=== PATIENT | male | born 1960 | race Caucasian/White ===

== ENCOUNTER 2017-03-10 09:15 | Inpatient (IN) | payer OTHER ==
[~2017-03-10] VITALS: Ht 175.3 cm; Wt 97.5 kg
[2017-03-10] MEDS ORDERED: GABAPENTIN400 MG PO (13:04)
[2017-03-10] MEDS ORDERED: LISINOPRIL2.5 MG PO (13:05)
[2017-03-10] MEDS ORDERED: ULTRAN PO (13:05)
[2017-03-10] MEDS ORDERED: LIPITOR20 MG PO (13:05)
[2017-03-10] MEDS ORDERED: CLONAZEPAM0.5 MG PO (13:06)
[2017-03-10] MEDS ORDERED: PRILOSEC10 MG PO (13:06)
[2017-03-10] MEDS ORDERED: EFFEXOR XR75 MG PO (13:07)
[2017-03-10] MEDS ORDERED: RELAFEN PO (13:07)
[2017-03-10] MEDS ORDERED: FLEXERIL PO (13:08)
[2017-03-18] MEDS ORDERED: CLONAZEPAM1 MG PO (11:53)
[2017-03-18] MEDS ORDERED: DOCUSATE SODIU100 MG PO (11:53)
[2017-03-18] MEDS ORDERED: PERCOCET 5-3251 EACH PO (11:53)
== END 2017-03-18 14:23 | disposition home or self-care (01) | DRG 455 ==
LOC: O/R 03-17 04:30 → PED 03-17 04:30 → SURH 03-17 07:15 → PED 03-17 10:30
PROVIDERS: Orthopaedic Surgery Orthopaedic Surgery of the Spine
PROC: 0RG20A0 Fusion of 2 or more Cervical Vertebral Joints with Interbody Fusion Device, Anterior Approach, Anterior Column, Open Approach (ICD-10-PCS; 2017-03-17)
PROC: 0RG20K1 Fusion of 2 or more Cervical Vertebral Joints with Nonautologous Tissue Substitute, Posterior Approach, Posterior Column, Open Approach (ICD-10-PCS; 2017-03-17)
PROC: 0RT30ZZ Resection of Cervical Vertebral Disc, Open Approach (ICD-10-PCS; principal; 2017-03-17 07:15)
DX: M50.121 Cervical disc disorder at C4-C5 level with radiculopathy (principal); M47.22 Other spondylosis with radiculopathy, cervical region; I10 Essential (primary) hypertension

== ENCOUNTER 2023-08-20 05:00 | Day surgery (SDC) | payer OTHER ==
[2023-08-13 10:31] LABS: HEMATOCRIT 44.6 % (39.0-48.0); HEMOGLOBIN 15.6 g/dL (13-16.00); MEAN CORPUSCULAR HEMOGLOBIN 31.1 pg (27.00-32.0); MEAN CORPUSCULAR HGB CONC 34.9 g/dl (32.0-36.0); PLATELET COUNT 211 K/uL (150-450); RED BLOOD COUNT 5.01 M/uL (4.00-6.00); RED CELL DISTRIBUTION WIDTH 13.5 % (11.5-14.5)
[2023-08-13 11:01] LABS: INR 1.07; PARTIAL THROMBOPLASTIN TIME 34.6 SECONDS (22.0-34.0); PROTHROMBIN TIME 11.2 SECONDS (9.0-11.5)
[2023-08-13 11:17] LABS: PH,URINE 5.5 (5.0-8.0); URINE APPEARANCE Clear; URINE BILIRRUBIN Negative (NEGATIVE); URINE BLOOD Negative; URINE COLOR Dark Yellow; URINE GLUCOSE Negative (NEGATIVE); URINE LEUKOCYTE Negative; URINE NITRATE Negative; URINE PROTEIN Trace (NEGATIVE)
[2023-08-13 11:21] LABS: URINE RBC 3.9 uL (0.0-20.8); URINE WBC 3.2 uL (0.0-23.2)
[2023-08-13 11:26] LABS: ALBUMIN 3.9 gm/dL (3.4-5.0); BILIRUBIN TOTAL 0.62 mg/dL (0.3-1.2); CALCIUM 9.4 mg/dL (8.5-10.1); CREATININE SERUM 0.96 mg/dL (0.70-1.30); GFR 78.61; GLOBULINA 3.2 G/DL (2.4-3.5); POTASSIUM 4.5 mEq/L (3.5-5.1); TOTAL PROTEIN 7.1 gm/dL (6.4-8.2)
[~2023-08-20 05:00] MED LIST: CLONAZEPAM0.5 MG PO; CLONAZEPAM1 MG PO; DOCUSATE SODIU100 MG PO; EFFEXOR XR75 MG PO; FLEXERIL PO; GABAPENTIN400 MG PO; LIPITOR20 MG PO; LISINOPRIL2.5 MG PO; PERCOCET 5-3251 EACH PO; PRILOSEC10 MG PO; RELAFEN PO; ULTRAN PO
[2023-08-20] MEDS ORDERED: DIBUCAINE 30 GM TUBE ONE (06:41)
[2023-08-20] MEDS ORDERED: HEMOSTATIC MATRIX 1 KIT KIT TOP ONE ×3 (06:41→08:00)
[2023-08-20] MEDS ORDERED: LIDOCAINE HCL 1%/EPINEPHRINE 20ML VIAL IJ ONE (06:41)
[2023-08-20] MEDS ORDERED: BUPIVACAINE HCL/MPF 0.5% 30ML VIAL ONE (06:41)
[2023-08-20] MEDS ORDERED: POVIDONE-IODINE 118 ML BOTT TOP ONE (06:41)
[2023-08-20] MEDS ORDERED: METRONIDAZOLE/SODIUM CHLORIDE 500 MG/100 ML PIGGYBACK IV ONE (07:00)
[2023-08-20] MEDS ORDERED: CEFTRIAXONE SODIUM 2,000 MG VIAL ONE (07:00)
[2023-08-20] MEDS ORDERED: OXYC1TAB9 PO (08:42)
[2023-08-20] MEDS ORDERED: TAMSULOSIN HCL 0.4 MG CAP PO ONE ×2 (09:00→10:15)
[2023-08-20] MEDS ORDERED: ONDANSETRON HCL 2 MG/ML VIAL ONE (10:16)
== END 2023-08-20 14:30 | disposition home or self-care (01) ==
LOC: CIR.AMB 05:00
PROVIDERS: ATTEND Surgery
DX: K64.2 Third degree hemorrhoids (principal); K64.4 Residual hemorrhoidal skin tags; K64.8 Other hemorrhoids; K62.5 Hemorrhage of anus and rectum; K62.89 Other specified diseases of anus and rectum; K59.09 Other constipation; Z91.013 Allergy to seafood

== ENCOUNTER 2023-09-03 07:19 | Inpatient (IN) | payer OTHER ==
[~2023-09-03] VITALS: Ht 175.3 cm; Wt 97.5 kg
[~2023-09-03 07:19] MED LIST changes: +OXYC1TAB9 PO
[2023-09-03] MEDS ORDERED: 0.9 % SODIUM CHLORIDE 1,000 ML IV STA (08:11)
[2023-09-03] MEDS ORDERED: PIPERACILLIN/TAZOBACTAM SODIUM 3.375 GM VIAL IV ONE (08:30)
[2023-09-03 08:47] LABS: HEMATOCRIT 38.8 % (39.0-48.0); HEMOGLOBIN 13.3 g/dL (13-16.00); MEAN CELL VOLUME 91.2 fL (80.0-100.00); MEAN CORPUSCULAR HEMOGLOBIN 31.4 pg (27.00-32.0); MEAN CORPUSCULAR HGB CONC 34.4 g/dl (32.0-36.0); PLATELET COUNT 234 K/uL (150-450); RED BLOOD COUNT 4.25 M/uL (4.00-6.00); RED CELL DISTRIBUTION WIDTH 13.5 % (11.5-14.5)
[2023-09-03 09:10] LABS: INR 1.1; PARTIAL THROMBOPLASTIN TIME 31.8 SECONDS (22.0-34.0); PROTHROMBIN TIME 11.5 SECONDS (9.0-11.5)
[2023-09-03 09:12] LABS: CALCIUM 8.8 mg/dL (8.5-10.1); CREATININE SERUM 1.05 mg/dL (0.70-1.30); GFR 70.89; POTASSIUM 4.48 mEq/L (3.5-5.1)
[2023-09-03] MEDS ORDERED: PANTOPRAZOLE SODIUM 40 MG/VIAL VIAL IV SCH (13:44)
[2023-09-03] MEDS ORDERED: RINGERS SOLUTION,LACTATED 1,000 ML IV SCH (13:45)
[2023-09-03] MEDS ORDERED: AMINOCAPROIC ACID 250 MG/ML VIAL IV ONE (14:00)
[2023-09-03 14:31] LABS: URINE APPEARANCE Clear; URINE BILIRRUBIN Negative (NEGATIVE); URINE BLOOD Negative; URINE COLOR Yellow; URINE GLUCOSE Negative (NEGATIVE); URINE LEUKOCYTE Negative; URINE NITRATE Negative; URINE PROTEIN Negative (NEGATIVE); URINE UROBILINOGEN 0.2 E.U./dl
[2023-09-03 14:35] LABS: URINE EPITHELIAL CELLS 1.6 uL (0.0-38.8)
[2023-09-03 14:38] LABS: URINE BACTERIA 3.7 uL (0.0-1933); URINE RBC 1.2 uL (0.0-20.8); URINE WBC 1.2 uL (0.0-23.2)
[2023-09-03 15:49] LABS: HEMATOCRIT 32.8 % (39.0-48.0); HEMOGLOBIN 11.1 g/dL (13-16.00); MEAN CELL VOLUME 91.4 fL (80.0-100.00); MEAN CORPUSCULAR HGB CONC 33.9 g/dl (32.0-36.0); PLATELET COUNT 224 K/uL (150-450); RED BLOOD COUNT 3.59 M/uL (4.00-6.00)
[2023-09-03 16:06] LABS: INR 1.14; PARTIAL THROMBOPLASTIN TIME 32.8 SECONDS (22.0-34.0); PROTHROMBIN TIME 11.9 SECONDS (9.0-11.5)
[2023-09-03 16:11] LABS: ALBUMIN 2.9 gm/dL (3.4-5.0); BILIRUBIN TOTAL 0.68 mg/dL (0.3-1.2); CALCIUM 7.9 mg/dL (8.5-10.1); CREATININE SERUM 0.86 mg/dL (0.70-1.30); GFR 89.25; GLOBULINA 2.7 G/DL (2.4-3.5); MAGNESIUM 1.9 mg/dL (1.8-2.4); PHOSPHOROUS 2.5 mg/dL (2.5-4.9); POTASSIUM 4.46 mEq/L (3.5-5.1); TOTAL PROTEIN 5.6 gm/dL (6.4-8.2)
[2023-09-03] MEDS ORDERED: SOD FERRIC GLUC COMPLX/SUCROSE 62.5 MG/5 ML AMPUL IV SCH (17:00)
[2023-09-03] MEDS ORDERED: FOLIC ACID 1 MG TABLET PO SCH (17:00)
[2023-09-03] MEDS ORDERED: AMINOCAPROIC ACID 250 MG/ML VIAL IV STA (20:57)
[2023-09-03] MEDS ORDERED: AMINOCAPROIC ACID 250 MG/ML VIAL IV SCH (21:00)
[2023-09-04 07:38] LABS: HEMATOCRIT 24.2 % (39.0-48.0); MEAN CELL VOLUME 90.4 fL (80.0-100.00); MEAN CORPUSCULAR HGB CONC 34.9 g/dl (32.0-36.0); PLATELET COUNT 196 K/uL (150-450); RED BLOOD COUNT 2.68 M/uL (4.00-6.00); RED CELL DISTRIBUTION WIDTH 13.2 % (11.5-14.5)
[2023-09-04 07:53] LABS: HEMOGLOBIN 8.4 g/dL (13-16.00); MEAN CORPUSCULAR HEMOGLOBIN 31.3 pg (27.00-32.0)
[2023-09-04 08:01] LABS: ALBUMIN 2.7 gm/dL (3.4-5.0); CREATININE SERUM 0.82 mg/dL (0.70-1.30); GFR 94.29; PHOSPHOROUS 2.4 mg/dL (2.5-4.9); POTASSIUM 4.28 mEq/L (3.5-5.1)
[2023-09-04] MEDS ORDERED: AMINOCAPROIC ACID 20 MG/ML ML IV SCH (09:00)
[2023-09-04] MEDS ORDERED: CEFTRIAXONE SODIUM 2,000 MG VIAL IV ONE (10:45)
[2023-09-04] MEDS ORDERED: METRONIDAZOLE/SODIUM CHLORIDE 500 MG/100 ML PIGGYBACK IV ONE (10:45)
[2023-09-04] MEDS ORDERED: LIDOCAINE HCL 1%/EPINEPHRINE 20ML VIAL IJ ONE (10:45)
[2023-09-04] MEDS ORDERED: POVIDONE-IODINE 118 ML BOTT TOP ONE (10:45)
[2023-09-04] MEDS ORDERED: DIPHENHYDRAMINE HCL 50 MG/ML VIAL 1ML IV NR (11:15)
[2023-09-04] MEDS ORDERED: FUROsemide 20 MG/2 ML VIAL IV SCH (11:15)
[2023-09-04] MEDS ORDERED: METHYLPREDNISOLONE SOD SUCC 40 MG VIAL IV NR (11:15)
[2023-09-04] MEDS ORDERED: SUGAMMADEX SODIUM 200 MG/2 ML VIAL IV ONE (11:30)
[2023-09-04] MEDS ORDERED: THROMBIN,HU/FIBRINOGEN/CALCIUM 10 ML SYRINGE TOP ONE (11:30)
[2023-09-04] MEDS ORDERED: DEXTROSE 50 % IN WATER 0.5 G/ML VIAL IV PRN (12:00)
[2023-09-04] MEDS ORDERED: OxyCODONE HCL 5 MG TABLET (ROXICODONE) PO PRN (12:00)
[2023-09-04] MEDS ORDERED: MORPHINE SULFATE 4 MG/ML CARTRIDGE IV PRN (12:00)
[2023-09-04] MEDS ORDERED: ONDANSETRON HCL 2 MG/ML VIAL IV PRN (12:00)
[2023-09-04] MEDS ORDERED: HYOSCYAMINE SULFATE 0.125 MG TAB.SUBL SL SCH (13:00)
[2023-09-04] MEDS ORDERED: ACETAMINOPHEN 500 MG GEL..CAP PO SCH (14:00)
[2023-09-04] MEDS ORDERED: PHENOL 177 ML BOTTLE MM PRN (14:30)
[2023-09-04] MEDS ORDERED: GABAPENTIN 300 MG CAPSULE PO SCH (17:00)
[2023-09-05] MEDS ORDERED: LISINOPRIL 2.5 MG TABLET PO SCH (09:00)
[2023-09-05] MEDS ORDERED: HYDROCHLOROTHIAZIDE 12.5 MG CAPSULE PO SCH (09:00)
[2023-09-05] MEDS ORDERED: DOCUSATE CALCIUM 240 MG CAPSULE PO SCH (12:23)
[2023-09-05 14:58] LABS: HEMATOCRIT 30.8 % (39.0-48.0); HEMOGLOBIN 10.9 g/dL (13-16.00); MEAN CELL VOLUME 87.5 fL (80.0-100.00); MEAN CORPUSCULAR HEMOGLOBIN 30.9 pg (27.00-32.0); MEAN CORPUSCULAR HGB CONC 35.4 g/dl (32.0-36.0); PLATELET COUNT 164 K/uL (150-450); RED BLOOD COUNT 3.52 M/uL (4.00-6.00); RED CELL DISTRIBUTION WIDTH 14.3 % (11.5-14.5)
[2023-09-05 15:15] LABS: ALBUMIN 2.8 gm/dL (3.4-5.0); CREATININE SERUM 1.14 mg/dL (0.70-1.30); GFR 64.47; PHOSPHOROUS 2.5 mg/dL (2.5-4.9); POTASSIUM 3.87 mEq/L (3.5-5.1)
[2023-09-06] MEDS ORDERED: MAGNESIUM HYDROXIDE 30 ML BLIST.PACK PO NR (12:57)
[2023-09-07 07:16] LABS: HEMATOCRIT 31.9 % (39.0-48.0); HEMOGLOBIN 11.1 g/dL (13-16.00); MEAN CELL VOLUME 88.9 fL (80.0-100.00); MEAN CORPUSCULAR HEMOGLOBIN 30.9 pg (27.00-32.0); MEAN CORPUSCULAR HGB CONC 34.7 g/dl (32.0-36.0); PLATELET COUNT 208 K/uL (150-450); RED BLOOD COUNT 3.59 M/uL (4.00-6.00); RED CELL DISTRIBUTION WIDTH 13.9 % (11.5-14.5)
[2023-09-07] MEDS ORDERED: MAGNESIUM HYDROXIDE 30 ML BLIST.PACK PO STA (07:40)
[2023-09-07] MEDS ORDERED: POLYETHYLENE GLYCOL 3350 17 GM BLIST.PACK PO SCH (09:00)
[2023-09-07] MEDS ORDERED: PANTOPRAZOLE SODIUM 40 MG TABLET.DR PO SCH (09:00)
[2023-09-07] MEDS ORDERED: SUCRALFATE 1 G TABLET PO SCH (09:00)
[2023-09-08 06:15] LABS: HEMATOCRIT 32.2 % (39.0-48.0); HEMOGLOBIN 11.3 g/dL (13-16.00); MEAN CELL VOLUME 89.2 fL (80.0-100.00); MEAN CORPUSCULAR HEMOGLOBIN 31.2 pg (27.00-32.0); PLATELET COUNT 236 K/uL (150-450); RED BLOOD COUNT 3.61 M/uL (4.00-6.00); RED CELL DISTRIBUTION WIDTH 13.7 % (11.5-14.5)
[2023-09-08] MEDS ORDERED: PANTOPRAZOLE SO40 MG PO (10:26)
[2023-09-08] MEDS ORDERED: PAIN RELIEVER500 M2 PO (10:26)
[2023-09-08] MEDS ORDERED: GABAPENTIN300 MG PO (10:26)
[2023-09-08] MEDS ORDERED: CARAFATE1 GM PO (10:27)
[2023-09-08] MEDS ORDERED: KAOPECTATE240 MG PO (10:27)
== END 2023-09-08 13:19 | disposition home or self-care (01) | DRG 348 ==
LOC: ER 07:19 → SURG 14:06 → SEC-K 14:06 → SURG 16:49
PROVIDERS: Emergency Medicine; ADMIT Surgery; ATTEND Surgery
PROC: BW21YZZ Computerized Tomography (CT Scan) of Abdomen and Pelvis using Other Contrast (ICD-10-PCS; 2023-09-03)
PROC: 0T9B70Z Drainage of Bladder with Drainage Device, Via Natural or Artificial Opening (ICD-10-PCS; 2023-09-03)
PROC: 0DJD8ZZ Inspection of Lower Intestinal Tract, Via Natural or Artificial Opening Endoscopic (ICD-10-PCS; 2023-09-04)
PROC: 3E0T3BZ Introduction of Anesthetic Agent into Peripheral Nerves and Plexi, Percutaneous Approach (ICD-10-PCS; 2023-09-04)
PROC: 30233N1 Transfusion of Nonautologous Red Blood Cells into Peripheral Vein, Percutaneous Approach (ICD-10-PCS; 2023-09-04)
PROC: 06LY8CC Occlusion of Hemorrhoidal Plexus with Extraluminal Device, Via Natural or Artificial Opening Endoscopic (ICD-10-PCS; principal; 2023-09-04 08:00)
DX: K64.8 Other hemorrhoids (principal); D62 Acute posthemorrhagic anemia; K62.5 Hemorrhage of anus and rectum; I95.9 Hypotension, unspecified; K59.00 Constipation, unspecified; R33.9 Retention of urine, unspecified; Z98.890 Other specified postprocedural states

== ENCOUNTER 2024-10-12 05:00 | Day surgery (SDC) | payer OTHER ==
[2024-10-04 11:12] VITALS: BP 127/80
[2024-10-04 11:30] LABS: URINE APPEARANCE Clear; URINE BILIRRUBIN Negative (NEGATIVE); URINE BLOOD Negative; URINE COLOR Dark Yellow; URINE GLUCOSE Negative (NEGATIVE); URINE KETONE Trace (NEGATIVE); URINE LEUKOCYTE Negative; URINE NITRATE Negative; URINE PROTEIN Negative (NEGATIVE); URINE UROBILINOGEN 0.2 E.U./dl
[2024-10-04 11:35] LABS: URINE BACTERIA 4.7 uL (0.0-1933); URINE EPITHELIAL CELLS 1.9 uL (0.0-38.8); URINE RBC 2.4 uL (0.0-20.8)
[2024-10-04 11:42] LABS: BASO % 0.8 % (0.1-1.2); EOS # 0.26 (0.04-0.54); EOS % 3.0 % (0.7-7.0); LYMPH # 1.84 (1.18-3.74); LYMPH % 21.1 % (19.3-53.1); MEAN PLATELET VOLUME 11.90 fl (9.4-12.4); MONO # 0.86 (0.24-0.82); MONO % 9.9 % (4.7-12.5); NEUT # 5.68 (1.56-6.13); NEUT % 65.0 % (34.0-71.1); RED CELL DISTRIBUTION WIDTH 12.0 % (11.6-14.4)
[2024-10-04 11:53] LABS: URINE CAST 0.58 uL (0.0-1.40); URINE WBC 1.3 uL (0.0-23.2)
[2024-10-04 11:55] LABS: INR 1.09
[2024-10-04 12:14] LABS: ALT/SGPT 35.0 U/L (12-78); AST/SGOT 21.0 U/L (15-37); BILIRUBIN TOTAL 0.53 mg/dL (0.3-1.2); BUN CREA RATIO 21.0 (7.0-25.0); CREATININE SERUM 1.0 mg/dL (0.70-1.30); GFR 74.76; GLOBULINA 3.0 G/DL (2.4-3.5); GLUCOSE FASTING 80.0 mg/dL (65-100); OSMOLALITY SERUM 283.0 MOSM/KG (275-295)
[~2024-10-12] VITALS: Ht 175.3 cm; Wt 100.7 kg
[~2024-10-12 05:00] MED LIST changes: +AIRDUO RESPICL1 EAC2 IH; +ALLERGY RELIE15.8 ML NASAL; +CARAFATE1 GM PO; +GABAPENTIN300 MG PO; +HYDRODIURIL12.5 MG PO; +KAOPECTATE240 MG PO; +MONTELUKAST SODI4 M1; +PAIN RELIEVER500 M2 PO; +PANTOPRAZOLE SO40 MG PO; +PROAIR RESPICL90 MCG IH; +QDOLO5 MG/1 ML; +RELAFEN DS1000 MG; +SIMVASTATIN5 MG; +ZOCOR20 MG
[2024-10-12] MEDS ORDERED: CELECOXIB200 MG PO (08:33)
[2024-10-12] MEDS ORDERED: PERCOCET 5-3251 EACH PO (08:33)
[2024-10-12] MEDS ORDERED: INTESTINEX680 M1 PO (08:33)
[2024-10-12] MEDS ORDERED: BUPIVACAINE HCL/PF 0.25% 30ML VIAL InF ONE (10:00)
[2024-10-12] MEDS ORDERED: HEMOSTATIC MATRIX 1 KIT KIT TOP ONE (10:00)
[2024-10-12] MEDS ORDERED: POVIDONE-IODINE 118 ML BOTT TOP ONE (10:00)
[2024-10-12] MEDS ORDERED: LIDOCAINE HCL 1%/EPINEPHRINE 20ML VIAL IJ ONE (10:00)
[2024-10-12] MEDS ORDERED: METRONIDAZOLE/SODIUM CHLORIDE 500 MG/100 ML PIGGYBACK IV ONE (10:00)
[2024-10-12] MEDS ORDERED: DIBUCAINE 30 GM TUBE RECTAL ONE (10:00)
[2024-10-12] MEDS ORDERED: CEFTRIAXONE SODIUM 2,000 MG VIAL IV ONE (10:00)
== END 2024-10-12 13:20 | disposition home or self-care (01) ==
LOC: CIR.AMB 05:00
PROVIDERS: ATTEND Surgery
DX: K60.1 Chronic anal fissure (principal); K64.2 Third degree hemorrhoids; K62.5 Hemorrhage of anus and rectum; K59.09 Other constipation